=== PATIENT | male | born 1980 | race Caucasian/White ===

== ENCOUNTER 2023-05-01 08:55 | Outpatient (CLI) | payer OTHER, SELFPAY ==
[2023-05-01 09:11] LABS: Basophils Absolute Auto 0.06 K/mm3 (0.00-0.10); Basophils Percent Auto 0.7 % (0.0-1.0); Eosinophils Absolute Auto 0.41 K/mm3 (0.02-0.50); Hematocrit 53.3 % (40.0-54.0); Hemoglobin 17.7 g/dL (14.0-18.0); Immature Granulocyte Absolute 0.03 K/mm3 (0.00-0.00); Immature Granulocyte Percent A 0.4 % (0.0-0.0); Lymphocytes Absolute Auto 2.85 K/mm3 (1.10-4.50); Lymphocytes Percent Auto 34.6 % (18.0-42.0); Mean Corpuscular HGB Conc 33.2 g/dL (32.0-36.0); Mean Corpuscular Hemoglobin 30.4 pg (27.0-31.0); Mean Corpuscular Volume 91.6 fL (78.0-102.0); Mean Platelet Volume 10.4 fl (8.7-11.0); Monocytes Absolute Auto 0.94 K/mm3 (0.10-0.90); Monocytes Percent Auto 11.4 % (2.0-11.0); Neutrophils Absolute Auto 3.9 K/mm3 (1.7-7.2); Neutrophils Percent Auto 47.9 % (50.0-70.0); Platelet Count Result 244 K/mm3 (150-420); Red Blood Count 5.82 M/mm3 (4.70-6.10); Red Cell Distribution Width 12.7 % (11.6-14.4); White Blood Count 8.2 K/mm3 (4.8-10.8)
[2023-05-01 09:19] LABS: Creatinine Urine 133.05 mg/dL (40-278); MALB Creatinine Ratio 9.7 mg/g (0-30); Microalbumin Urine Random < 13.0 mg/L
[2023-05-01 09:20] LABS: Hemoglobin A1C 9.4 % (<5.7)
[2023-05-01 11:36] LABS: Alanine Aminotransferase 46 U/L (16-63); Albumin Level 4.1 g/dL (3.4-5.0); Alkaline Phosphatase 86 U/L (46-116); Anion Gap 6 mmol/L (8-16); Aspartate Amino Transferase 13 U/L (15-37); Bilirubin,Total 0.6 mg/dL (0.00-1.00); Blood Urea Nitrogen 8 mg/dL (7-18); Calcium 9.5 mg/dL (8.5-10.1); Carbon Dioxide 33 mmol/L (21-32); Chloride 99 mmol/L (98-108); Cholesterol 146 mg/dL (0-200); Estimated Glomerular Filt Rate > 60; Glucose 213 mg/dL (70-99); HDL Direct 33 mg/dL (40-60); LDL Cholesterol Calculated 83 mg/dL (<130); Osmolality Calculated 290 mOsm/kg (285-295); Potassium 4.5 mmol/L (3.5-5.1); Sodium 138 mmol/L (136-145); Total Protein 7.3 g/dL (6.4-8.2); Triglycerides 148 mg/dL (0-150)
== END 2023-05-01 08:56 | disposition home or self-care (01) ==
LOC: CHSLAB 08:57
PROVIDERS: PCP Family Medicine; Visit Provider Family Medicine
DX: E11.9 Type 2 diabetes mellitus without complications (principal); I10 Essential (primary) hypertension
CPT/HCPCS: 36415; 80053; 80061; 82043; 83036; 85025

== ENCOUNTER 2023-05-04 08:22 | Outpatient (CLI) | payer OTHER, SELFPAY ==
--- NOTE | ~2023-05-04 | CT_ITS ---
Non-contrast CT scan of the Abdomen and Pelvis Clinical indication: Abdominal pain, hernia Technique: 2.5 mm axial scans were obtained through the abdomen and pelvis without intravenous or or al contrast. Dose reduction technique was used on this scan by utilizing automated exposure control a nd iterative reconstruction technique. The dose-length product (DLP) was 909.33 mGy-cm. Findings: Images through the lung bases reveal no abnormalities. There is a 2 mm nonobstructing left renal stone. There is possible minimal fullness of left ureter. C orrelate for recently passed stone. The liver, spleen, pancreas, gallbladder, and adrenals appear normal. There are mild atherosclerotic calcifications of the aorta. There is no evidence of bowel obstruction. Images through the pelvis were performed. There is no evidence of ascites or lymphadenopathy. Urinary bladder unremarkable. No pelvic mass seen. No hernia identified. Impression: Minimal fullness of the left ureter. Correlate for recently passed stone. 2 mm nonobstructing left renal stone. Reviewed, dictated and finalized at [facility]. DRIER Impression: Minimal fullness of the left ureter. Correlate for recently passed stone. 2 mm nonobstructing left renal stone.
== END 2023-05-04 08:23 | disposition home or self-care (01) ==
PROVIDERS: PCP Family Medicine; Visit Provider Family Medicine
DX: K40.90 Unilateral inguinal hernia, without obstruction or gangrene, not specified as recurrent (principal); N20.0 Calculus of kidney
CPT/HCPCS: 74176